=== PATIENT | male | born 1975 | race Caucasian/White ===

== ENCOUNTER 2019-10-01 16:29 | Emergency (ER) | payer BC, OTHER ==
[2019-10-01] MEDS ORDERED: Sodium Chloride 0.9% 1000 ML 1,000 ML IV STA (16:32)
[2019-10-01] MEDS ORDERED: Zofran 4 MG/2 ML VIAL IV ONE (16:32)
[2019-10-01] MEDS ORDERED: DILAUDID 2 MG INJECTION IV PRN (16:48)
[2019-10-01] MEDS ORDERED: Hydromorphone 1 mg/ml Ampule ONE (16:48)
[2019-10-01] MEDS ORDERED: Sodium Chloride 0.9% 1000 ML 1,000 ML ONE (16:48)
[2019-10-01] MEDS ORDERED: Zofran 4 MG/2 ML VIAL ONE (16:49)
[2019-10-01] MEDS ORDERED: Hydromorphone 1 mg/ml Ampule IV ONE (16:50)
[2019-10-01 16:57] LABS: Absolute Neutrophil Ct (ANC) 7.59 (1.4-6.9); BASOPHIL % 0.1 % (0.0-0.4); Basophil (Absolute #) 0.01 (0-0.4); Eosinophil % 1.1 % (0.00-5.0); Eosinophil (Absolute #) 0.12 (0-0.5); Hemoglobin 17.6 gm/dl (12.5-18.0); Lymphocytes % 24.3 % (24.0-44.0); Mean Cell Volume 85.7 fl (78-100); Mean Corpuscular Hemoglobin 29.6 pg (26-32); Mean Corpuscular Hgb Concent. 34.5 g/dl (32-36); Mean Platelet Volume 9.5 fl (6-9.5); Monocyte (Absolute #) 0.71 (0.0-1.3); Monocytes % 6.4 % (0.0-12.0); Neutrophil % 68.1 % (36.0-66.0); Platelet Count 173 K/mm3 (150-450); Red Blood Count 5.95 M/mm3 (4.1-5.6); Red Cell Distribution Width 13.8 % (11.5-14.0); White Blood Count 11.1 K/mm3 (4.0-10.5)
[2019-10-01 17:02] LABS: INR 0.94 (0.8-3.0); PROTIME 10.6 SECONDS (8.83-12.87)
[2019-10-01 17:05] LABS: PTT 26.3 SECONDS (24.1-36.1)
[2019-10-01 17:07] LABS: ALBUMIN 4.6 g/dL (3.5-5.0); ALKALINE PHOSPHATASE 68 U/L (38-126); AMYLASE 48 U/L (30-110); ANION GAP 10.5 MEQ/L (5-15); BLOOD UREA NITROGEN 17 mg/dL (9-20); CHLORIDE 107 mmol/L (98-107); CK-Creatinine Phosphokinase 706 U/L (55-170); Calcium 9.7 mg/dL (8.4-10.2); Carbon Dioxide 33 mmol/L (22-30); Glucose 161 mg/dL (74-106); LIPASE 100 U/L (23-300); SGOT/AST 132 U/L (17-59); SGPT/ALT 149 U/L (0-50); SODIUM 146 mmol/L (137-145); Total Protein 8.2 g/dL (6.3-8.2)
[2019-10-01 17:15] LABS: ETHYL ALCOHOL < 10 mg/dL (0-10)
[2019-10-01 17:23] LABS: TROPONIN < 0.012 ng/mL (0.000-0.034)
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
[2019-10-01 18:34] LABS: Appearance CLEAR (CLEAR); Bilirubin NEGATIVE (NEGATIVE); Blood LARGE Ery/ul (0-5); Glucose >=500 mg/dL (NEGATIVE); Ketones NEGATIVE (NEGATIVE); Leukocyte Esterase NEGATIVE (NEGATIVE); Mucus SLIGHT /HPF (NEGATIVE); Nitrite NEGATIVE (NEGATIVE); Protein,Urine Dip 30 (Negative); Specific Gravity 1.041 (1.005-1.025); Urobilinogen NEGATIVE mg/dL (0-1)
[2019-10-01 18:35] LABS: Bacteria NONE SEEN /HPF (NEGATIVE)
[2019-10-01 18:42] LABS: Amphetamine,Urine NEGATIVE (NEGATIVE); Barbiturate,Urine NEGATIVE (NEGATIVE); Benzodiazepine,Urine NEGATIVE (NEGATIVE); Cocaine,Urine NEGATIVE (NEGATIVE); Methadone,Urine NEGATIVE (NEGATIVE); Opiate,Urine POSITIVE (NEGATIVE); PCP,Urine NEGATIVE (NEGATIVE); THC,Urine NEGATIVE (NEGATIVE)
[2019-10-01 19:11] VITALS: BP 108/64; PULSE 90; O2SAT 90
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
== END 2019-10-01 19:20 | disposition home or self-care (01) ==
LOC: ED 16:29
DX: S00.93XA Contusion of unspecified part of head, initial encounter (principal); S22.42XA Multiple fractures of ribs, left side, initial encounter for closed fracture; R58 Hemorrhage, not elsewhere classified; S40.812A Abrasion of left upper arm, initial encounter; S20.319A Abrasion of unspecified front wall of thorax, initial encounter; S60.511A Abrasion of right hand, initial encounter; V57.0XXA Driver of pick-up truck or van injured in collision with fixed or stationary object in nontraffic accident, initial encounter
CPT/HCPCS: 36415; 70450; 71260; 72125; 73080; 74177; 80053; 80307; 81001; 82150; 82550; 83690; 84484; 85025; 85610; 85730; 87086; 93005; 96360; 96374; 96375; 99285; J1170; J2405; G0480